=== PATIENT | male | born 1945 | race Caucasian/White ===

== ENCOUNTER → 2017-01-14 | Outpatient (CLI) | payer OTHER ==
[~2017-01-14] MED LIST: ADVAIR 500-501 EACH INH; CIPRO500 MG PO; FLOMAX0.4 MG PO; METAMUCIL PAC1 UDPKT PO; PROAIR RESPICL90 MCG IH; SPIRIVA INH
--- NOTE | ~2017-01-14 | EKG ---
[place] [address] [facility] [place] [address] ELECTROCARDIOGRAM REPORT Name: CARLA ALVAREZ Room #: REG [facility]#: [id number] Admission: 01/14/17 Attend Phys: Aditya Little DO Discharge: Date of : 49 Report #: [id number] THIS REPORT FOR: //name// [facility] Test Date: 2017-01-14 Test Time: 12:51:19 Pat Name: CARLA ALVAREZ Department: Room: Gender: M Alemite Operator: NAIN : 1945 Requested By: Aditya Little Order Number: [id number] MD: Isaias Beltre Measurements Intervals Vincent Rate: 83 P: 86 TN: 175 QRS: 86 QRSD: 98 T: 44 QT: 369 QTc: 434 Interpretive Statements Sinus rhythm Ventricular premature complex Possible anteroseptal infarct, old No previous ECG available for comparison Electronically Signed On 01-15-2017 17:43:37 DEBURR OPERATOR by Isaias Beltre [email or web address] <ELECTRONICALLY SIGNED> By: Isaias Beltre MD, [facility] 01/15/17 1743 1251 1251 Isaias Beltre MD, FACC /EPI
== END | disposition home or self-care (01) ==
LOC: LITH 12:22
DX: N20.1 Calculus of ureter (principal)